=== PATIENT | male | born 1985 | race Caucasian/White ===

== ENCOUNTER 2017-08-12 10:38 | Emergency (ER) | payer MEDICAID, SELFPAY ==
[2017-08-12 11:47] VITALS: BP 111/72; PULSE 84; RESP 20; TEMP 37.2; O2SAT 99; BMI 25.5
--- NOTE | 2017-08-12 11:52 | HMH.EDUTC ---
[facility] – [place] Disposition Clinical Impression: Influenza A Disposition: Home, Self-Care Condition on Discharge: Good Instructions: DI for Influenza -- Adult Additional Instructions: * Start Tamiflu today if you are going to take it. Discussed risks, side effects, risk of allergic reaction, and possible benefits. We even discussed hallucinations and uncontrollable fevers. Mom still wants tamiflu for child. Encouraged to monitor closely.. * Lots of rest * Increase fluids, water, gatorade, powerade, pedialyte if infant/toddler/child * Monitor Temp. Tylenol every 4 hours as needed no more then 5 times a day or 4000mg in 24 hours and/or ibuprofen every 6 hours as needed no more then 3200mg in 24 hours (as long as your primary care doctor has told you that it is ok to take both) for fever/aches/pain. ER if fever no less than 101 despite tylenol and Ibuprofen * OTC cold/flu/sinus medication is ok but pick one. Do not take multiple different ones as they have similar ingredients and you can overdose on cold medication. * You (or your child) are contagious until no fever, aches, chills x 24 hours without medication for symptoms. Prescriptions: Oseltamivir Phosphate [Tamiflu 75mg Capsule] 75 mg PO BID #10 cap Referrals: Rae Crenshaw APRN [Primary Care Provider] - (Follow up IMMEDIATELY for new or worsening symptoms, improvement followed by suddenly feeling worse OR no noticeable improvement over the next 72 hours. 911 for difficulty breathing ) Time of Disposition: 12:02 Medical Decision Making - Nabor Inquiry Pt receiving controlled substance: No Vital Signs: 08/12/17 11:47 Temperature 98.9 F Temperature Source Temporal Artery Scan Pulse Rate [Brachial] 84 Respiratory Rate 20 Blood Pressure [Right Arm] 111/72 Blood Pressure Mean [Right Arm] 85 Blood Pressure Source [Right Arm] Automatic Cuff Blood Pressure Position [Right Arm] Sitting 02 Sat by Pulse Oximetry 99 Oxygen Delivery Method Room Air - Lab Data Influenza A positive, influenza B negative [facility] [place] HPI - General Stated complaint: fever vomiting headache Time Seen by Provider: 08/12/17 11:52 Mode of Arrival: Ambulatory Source of Information: Patient Limitations: No Limitations Description of Symptoms (Recalled from Triage Doc. by RN): TP COMPLAINS OF FEVER, CHILLS, BODY ACHES, COUGH, SINCE YESTERDAY HEENT Symptoms (Recalled from RN notes): Yes Resp Symptoms (Recalled from RN notes): Yes Skin Symptoms (Recalled from RN notes): No MS Symptoms (Recalled from RN notes): No Functional Status (Recalled from RN notes): NA - History of Present Illness Provider Complaint: c/o not feeling well since Saturday night. Worse yesterday. Fever, headache, chills. No known sick contacts. Hasn't taken or tried anything besides tylenol last night which helped them. Fever 101 at home. - Related Data Home Medications Medication Instructions Recorded Confirmed Escitalopram Oxalate [Lexapro] 10 mg PO DAILY 08/12/17 08/12/17 Omeprazole Magnesium [Prilosec Otc 20 mg PO DAILY 08/12/17 08/12/17 20mg Tab] Previous Rx's Medication Instructions Recorded Oseltamivir Phosphate [Tamiflu 75 mg PO BID #10 cap 08/12/17 75mg Capsule] Allergies Allergy/AdvReac Type Severity Reaction Status Date / Time No Known Allergies Allergy Unverified 08/05/17 09:49 - Worker's Comp Is this a Worker's Comp case?: No [facility] History I have reviewed the patient's past medical history: Yes Medical History: Reports:: Anxiety, Gastroesophageal Reflux Disease(GERD) Denies:: Diabetes Mellitus Type 1, Diabetes Mellitus Type 2, Hypertension Laterality Cases: Bilateral: Tonsillectomy Other Surgeries: Yes: Appendectomy, Other (left knee surgery, L BKA) - Social History Alcohol Intake: never - Psychiatric History Expresses thoughts of harming self/others: None Suicide Plan Description: No Plan ROS Obtained: Yes Systems reviewed as appropriate & no additional complaints - [employer]
--- NOTE | 2017-08-12 11:59 | ED_ITS ---
[facility] [place] Impression: Influenza A Disposition: Home, Self-Care Condition on Discharge: Good Instructions: DI for Influenza -- Adult Additional Instructions: * Start Tamiflu today if you are going to take it. Discussed risks, side effects , risk of allergic reaction, and possible benefits. We even discussed hallucinations and uncontrollable fevers. Mom still wants tamiflu for child. Encouraged to monitor closely.. * Lots of rest * Increase fluids, water, gatorade, powerade, pedialyte if /toddler/child * Monitor Temp. Tylenol every 4 hours as needed no more then 5 times a day or 4000mg in 24 hours and/or ibuprofen every 6 hours as needed no more then 3200mg in 24 hours (as long as your primary care doctor has told you that it is ok to take both) for fever/aches/pain. ER if fever no less than 101 despite tylenol and Ibuprofen * OTC cold/flu/sinus medication is ok but pick one. Do not take multiple different ones as they have similar ingredients and you can overdose on cold medication. * You (or your child) are contagious until no fever, aches, chills x 24 hours without medication for symptoms. Prescriptions: Oseltamivir Phosphate [Tamiflu 75mg Capsule] 75 mg PO BID #10 cap Referrals: Rae Crenshaw APRN [Primary Care Provider] - (Follow up IMMEDIATELY for new or worsening symptoms, improvement followed by suddenly feeling worse OR no noticeable improvement over the next 72 hours. 911 for difficulty breathing ) Time of Disposition: 12:02 Medical Decision Making - Nabor Inquiry Pt receiving controlled substance: No Vital Signs: 08/12/17 11:47 Temperature 98.9 F Temperature Source Temporal Artery Scan Pulse Rate [Brachial] 84 Respiratory Rate 20 Blood Pressure [Right Arm] 111/72 Blood Pressure Mean [Right Arm] 85 Blood Pressure Source [Right Arm] Automatic Cuff Blood Pressure Position [Right Arm] Sitting 02 Sat by Pulse Oximetry 99 Oxygen Delivery Method Room Air - Lab Data Influenza A positive, influenza B negative [facility] [place] - General Stated complaint: fever vomiting headache Time Seen by Provider: 08/12/17 11:52 Mode of Arrival: Ambulatory Source of Information: Patient Limitations: No Limitations Description of Symptoms (Recalled from Triage Doc. by RN): TP COMPLAINS OF FEVER , CHILLS, BODY ACHES, COUGH, SINCE YESTERDAY HEENT Symptoms (Recalled from RN notes): Yes Resp Symptoms (Recalled from RN notes): Yes Skin Symptoms (Recalled from RN notes): No MS Symptoms (Recalled from RN notes): No Functional Status (Recalled from RN notes): NA - History of Present Illness Provider Complaint: c/o not feeling well since Saturday night. Worse yesterday. Fever, headache, chills. No known sick contacts. Hasn't taken or tried anything besides tylenol last night which helped them. Fever 101 at home. - Related Data Home Medications Medication Instructions Recorded Confirmed Escitalopram Oxalate [Lexapro] 10 mg PO DAILY 08/12/17 08/12/17 Omeprazole Magnesium [Prilosec Otc 20 mg PO DAILY 08/12/17 08/12/17 20mg Tab] Previous Rx's Medication Instructions Recorded Oseltamivir Phosphate [Tamiflu 75 mg PO BID #10 cap 08/12/17 75mg Capsule] Allergies Allergy/AdvReac Type Severity Reaction Status Date / Time No Known Allergies Allergy Unverified 08/05/17 09:49 - Worker's Comp Is this a Worker's C
[2017-08-12 12:04] LABS: UTC Influenza A Antigen Positive (Negative); UTC Influenza B Antigen Negative (Negative)
[2017-08-12 12:06] VITALS: BP 111/72; PULSE 94; RESP 20; TEMP 37.2; O2SAT 99
== END 2017-08-12 12:07 | disposition home or self-care (01) ==
PROVIDERS: Emergency Provider Nurse Practitioner Family; Family Provider Emergency Medicine; PCP Nurse Practitioner Family
DX: J10.1 Influenza due to other identified influenza virus with other respiratory manifestations (principal); K21.9 Gastro-esophageal reflux disease without esophagitis
CPT/HCPCS: 87804; 99201

== ENCOUNTER 2020-06-09 19:23 | Emergency (ER) | payer OTHER, SELFPAY ==
[2020-06-09 19:24] VITALS: BP 135/78; PULSE 87; RESP 16; TEMP 36.9; O2SAT 96; BMI 24.1
--- NOTE | 2020-06-09 20:21 | HMH.EDEYEP ---
ED Disposition Clinical Impression: Irritation of left eye Disposition: Home, Self-Care Condition on Discharge: Good Instructions: DI for Eye Pain Additional Instructions: use meds as directed and see dr lópez in am if needed Referrals: Rae Crenshaw APRN [Primary Care Provider] - - Critical Care Critical Care Time: No Attestation: On 06/09/20, the high probability of a clinically significant, sudden or life threatening deterioration of the following system(s) required my full and direct attention, intervention and personal management. The time I documented below is in addition to time spent performing reported procedures but includes the following listed in this critical care notation. Medical Decision Making - Medical Records Medical records reviewed: Yes: I reviewed the patient's medical records. - Nabor Inquiry Pt receiving controlled substance: No Vital Signs: 06/09/20 19:24 Temperature 98.4 F Temperature Source Oral Pulse Rate [Left Radial] 87 Respiratory Rate 16 Blood Pressure [Right Arm] 135/78 Blood Pressure Mean [Right Arm] 97 Blood Pressure Source [Right Arm] Automatic Cuff Blood Pressure Position [Right Arm] Sitting 02 Sat by Pulse Oximetry 96 Oxygen Delivery Method Room Air Orders (Tests/Meds): ED MEDICATIONS Discontinued Medications Generic Name Dose Route Start Last Admin Trade Name Freq PRN Reason Stop Dose Admin Gentamicin Sulfate 1 gm 06/09/20 20:26 Gentamicin Opth Ointment 3.5gm OP 06/09/20 20:27 ONCE ONE Tetanus/Diphtheria Toxoids 0.5 ml 06/09/20 20:30 Tetanus-Diphth Toxoid, Adult 0.5ml Syr IM 06/09/20 20:31 .ONCE ONE Tetracaine HCl 20 mg 06/09/20 20:26 Tetracaine 1% (10mg/Ml) 2ml Ampul IJ 06/09/20 20:27 ONCE ONE Eye Problem HPI - General Chief complaint: Eye Problems Stated complaint: FB in eye Time Seen by Provider: 06/09/20 20:00 Mode of Arrival: Ambulatory Source of Information: Patient, Medical Record Limitations: No Limitations Description of Symptoms (Recalled from ER Triage Doc. by RN): pt stated he was cutting wood when he felt something fly up in his left eye. pt stated he bought on OTGingr eye flushing kit but didnt get any relief. pt denies any visual deficits and just complains of irritation at this time. - History of Present Illness HPI Narrative: fb sensation lt eye this pm - not removed with otc meds chief complaint: foreign body Onset (ago): hour(s) Onset description: sudden Duration: intermittent Location: left eye Eye Symptoms: foreign body sensation Place: home Mechanism: other (dust shavings ) Associated symptoms: none Treatments Prior to Arrival: irrigated eye - Related Data Patient tetanus UTD: No Previous Rx's Medication Instructions Recorded duloxetine 60 mg capsule,delayed 60 mg PO DAILY #90 cap 08/17/19 release omeprazole 40 mg capsule,delayed 40 mg PO DAILY #30 cap 06/01/20 release Allergies Allergy/AdvReac Type Severity Reaction Status Date / Time No Known Allergies Allergy Verified 06/01/20 13:25 [facility] History - Hepatitis A Screen Drug use history?: No High risk sexual behaviors?: No History of sexually transmitted infection?: No Currently employed?: No Childcare worker?: No Do you have indoor plumbing?: Yes Do you have electricity?: Yes Attestation statement:: This patient has been screened for Hepatitis A risk factors. I have reviewed the patient's past medical history: Yes Medical History: Reports:: Anxiety, Gastroesophageal Reflux Disease(GERD) Denies:: Diabetes Mellitus Type 1, Diabetes Mellitus Type 2, Hypertension Laterality Cases: Bilateral: Tonsillectomy Other Surgeries: Yes: Appendectomy, Other Amputation: Yes (Left BKA) Fractures: No - Social History Smoking Status: Former smoker Alcohol Intake: current Alcohol Intake Frequency:: holidays/special occasions only Substance Use Type: denies use Occupational Status: employed Housing:
--- NOTE | 2020-06-09 20:28 | PC.NURSE ---
iveth lens applied to pt left eye
[2020-06-09 20:50] VITALS: BP 131/72; PULSE 81; RESP 16; TEMP 36.9; O2SAT 97
== END 2020-06-09 21:04 | disposition home or self-care (01) ==
PROVIDERS: Emergency Provider Emergency Medicine; PCP Nurse Practitioner Family
DX: S00.252A Superficial foreign body of left eyelid and periocular area, initial encounter (principal); W45.8XXA Other foreign body or object entering through skin, initial encounter; Y92.89 Other specified places as the place of occurrence of the external cause; K21.9 Gastro-esophageal reflux disease without esophagitis; F41.9 Anxiety disorder, unspecified; Z23 Encounter for immunization; Z87.891 Personal history of nicotine dependence
CPT/HCPCS: 65205; 90471; 90714; 96365; 99281

== ENCOUNTER 2020-10-06 09:23 | Emergency (ER) | payer OTHER, SELFPAY ==
[2020-10-06 09:25] VITALS: BP 92/62; PULSE 68; RESP 19; TEMP 37; O2SAT 98; BMI 22.5
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
[2020-10-06 10:05] VITALS: BP 92/62; PULSE 68; RESP 19; TEMP 37; O2SAT 98
[2020-10-06 10:59] LABS: Apearance,Urine Clear (Clear); Color,Urine Yellow (Yellow)
[2020-10-06 11:00] LABS: Glucose,Urine (UA) Negative (Negative); Ketones,Urine Negative (Negative); Protein,Urine Negative (Negative)
[2020-10-06 11:01] LABS: Bilirubin,Urine Negative (Negative); Blood, Urine Trace (Negative); UTC Leukocyte Esterase,Urine Negative (Negative); UTC Nitrate,Urine Negative (Negative); Urobilinogen,Urine 0.2 EU/dl (0.2)
[2020-10-08 07:27] LABS: Neisseria gonorrhoeae, NAA Negative (Negative)
== END 2020-10-06 10:08 | disposition home or self-care (01) ==
PROVIDERS: Emergency Provider Nurse Practitioner; PCP Nurse Practitioner Family
DX: Z11.3 Encounter for screening for infections with a predominantly sexual mode of transmission (principal); R30.0 Dysuria; K21.9 Gastro-esophageal reflux disease without esophagitis; F41.9 Anxiety disorder, unspecified
CPT/HCPCS: 81003; 87491; 87591; 99202; G0463

== ENCOUNTER 2021-01-07 19:09 | Emergency (ER) | payer OTHER, SELFPAY ==
[2021-01-07 19:31] VITALS: BP 122/74; PULSE 84; RESP 18; TEMP 37; O2SAT 98; BMI 32.5
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
--- NOTE | 2021-01-07 21:29 | PC.NURSE ---
Pt refused CT Angio neck
[2021-01-07 22:43] VITALS: BP 126/72; PULSE 76; RESP 16; TEMP 37; O2SAT 99
== END 2021-01-07 22:45 | disposition home or self-care (01) ==
PROVIDERS: Emergency Provider Internal Medicine; PCP Nurse Practitioner Family
DX: S00.93XA Contusion of unspecified part of head, initial encounter (principal); S10.93XA Contusion of unspecified part of neck, initial encounter; W22.8XXA Striking against or struck by other objects, initial encounter; Y92.89 Other specified places as the place of occurrence of the external cause; F41.9 Anxiety disorder, unspecified; K21.9 Gastro-esophageal reflux disease without esophagitis; Z87.891 Personal history of nicotine dependence
CPT/HCPCS: 70450; 99282

== ENCOUNTER 2021-09-27 10:13 | Emergency (ER) | payer OTHER, SELFPAY ==
[2021-09-27 10:27] VITALS: BP 113/70; PULSE 79; RESP 17; O2SAT 98; BMI 24.9
[2021-09-27 11:16] VITALS: BP 113/70; PULSE 79; RESP 18; TEMP 36.6; O2SAT 99; BMI 25.0
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
[2021-09-27 12:30] VITALS: BP 113/70; PULSE 79; RESP 18; TEMP 36.6
== END 2021-09-27 12:33 | disposition home or self-care (01) ==
PROVIDERS: Emergency Provider Nurse Practitioner Family; PCP Nurse Practitioner Family
DX: M62.838 Other muscle spasm (principal); M79.605 Pain in left leg; Z89.512 Acquired absence of left leg below knee; T87.89 Other complications of amputation stump; K21.9 Gastro-esophageal reflux disease without esophagitis; F41.9 Anxiety disorder, unspecified; Z87.891 Personal history of nicotine dependence; Z79.899 Other long term (current) drug therapy
CPT/HCPCS: 96372; 99212; G0463

== ENCOUNTER 2022-06-13 09:38 | Emergency (ER) | payer OTHER, SELFPAY ==
[2022-06-13 09:38] VITALS: BP 114/70; PULSE 70; RESP 18; TEMP 36.3; O2SAT 100; BMI 24.3
--- NOTE | 2022-06-13 09:42 | PC.NURSE ---
pt to restroom via wc to provide urine sample
--- NOTE | 2022-06-13 09:46 | PC.NURSE ---
pt to ed room 11 via wc from restroom
--- NOTE | 2022-06-13 09:51 | PC.NURSE ---
0920 DR BARTON AT BEDSIDE
--- NOTE | 2022-06-13 09:52 | CT_ITS ---
FINAL REPORT TECHNIQUE: Noncontrast CT exam of the abdomen and pelvis. This study was performed with techniques to keep radiation doses as low as reasonably achievable (ALARA). Individualized dose reduction techniques using automated exposure control or adjustment of mA and/or kV according to the patient''s size were employed. CLINICAL HISTORY: Left flank pain radiating to groin COMPARISON: None FINDINGS: Abdomen: Lung bases are clear. Liver, spleen, pancreas and adrenal glands have a normal CT appearance in their limited unenhanced state. There is a 3 mm left proximal ureteral stone with minimal left hydronephrosis. No other urinary tract stones are identified. No obvious renal mass is present. No ureteral stones are present. Bowel is unremarkable. Pelvis: The appendix is not identified; possibly surgically absent. Bladder is unremarkable. No fluid collection or adenopathy is seen. IMPRESSION: Small proximal left ureteral stone with minimal left hydronephrosis. Reviewed, Interpreted and Dictated by Erica Lopez MD Transcribed by Glenna Grey Authenticated and [facility]
[2022-06-13 09:54] LABS: Microscopic, Urine URINE MICROSCOPIC (MICROSCOPIC)
[2022-06-13 09:56] LABS: Appearance,Urine CLOUDY (Clear); Bilirubin,Urine Negative (Negative); Blood, Urine 3+ (Negative); Color,Urine DK YELLOW (Yellow); Glucose,Urine (UA) Negative (Negative); Ketones,Urine Negative (Negative); Leukocyte Esterase,Urine Negative (Negative); Nitrate,Urine Negative (Negative); PH,Urine 5.5 (5.0-8.5); Protein,Urine 1+ (Negative); Specific Gravity, Urine >= 1.030 (1.005-1.030); Urobilinogen,Urine 0.2 EU/dl (0.2)
--- NOTE | 2022-06-13 09:59 | US_ITS ---
FINAL REPORT TECHNIQUE: Ultrasound images of the testicles were obtained bilaterally. Color Doppler images were obtained. CLINICAL HISTORY: severe L testicular pain FINDINGS: The testicles are normal in size and echotexture bilaterally. Arterial flow is identified bilaterally. No intratesticular masses are identified. There is a small left hydrocele. There is no evidence of torsion. IMPRESSION: Small left hydrocele. No evidence of torsion. Reviewed, Interpreted and Dictated by Erica Lopez MD Transcribed by Yandy Kaiser Authenticated and [facility]
[2022-06-13 10:08] LABS: Bacteria,Urine 1+ /lpf; Hyaline Casts,Urine Occasional #/lpf (0); RBC,Urine TNTC #/hpf (0-3); Squamous Epithelial Cell,Urine Occasional #/hpf (0-5)
[2022-06-13 10:10] LABS: Basophils # 0.1 K/mm3 (0-0.2); Basophils % 0.9 % (0.1-2.0); Eosinophils # 0.2 K/mm3 (0.0-0.4); Eosinophils % 3.9 % (0.1-12.0); Hematocrit 40.1 % (42.0-52.0); Hemoglobin 13.6 g/dL (14.1-18.0); Lymphocytes # 1.8 K/mm3 (0.7-4.5); Mean Corpuscular HGB Conc 33.9 g/dL (31.8-35.4); Mean Corpuscular Hemoglobin 29.6 pg (27.0-31.2); Mean Corpuscular Volume 87.2 fl (80-94); Mean Platelet Volume 7.7 fl (7.4-10.4); Monocytes # 0.4 K/mm3 (0.1-1.0); Monocytes % 6.6 % (1.7-9.3); Neutrophils # 3.7 K/mm3 (1.8-7.8); Neutrophils % 59.5 % (37.0-80.0); Platelet Count 246 K/mm3 (142-424); Red Cell Distribution Width 13.2 % (11.5-17.5); White Blood Count 6.3 K/mm3 (4.8-10.8)
[2022-06-13 10:12] LABS: Chloride 108 mmol/L (98-107)
[2022-06-13 10:13] LABS: Potassium 4.5 mmoL/L (3.5-5.1); Sodium 141 mmol/L (136-145)
[2022-06-13 10:15] LABS: Alanine Aminotransferase 27 U/L (12-78); Alkaline Phosphatase 52 U/L (38-126); Anion Gap 12.5 mEq/L (5-15); Aspartate Amino Transferase 29 U/L (17-59); Bilirubin,Total 0.4 mg/dl (0.2-1.3); Blood Urea Nitrogen 19 mg/dl (9-20); Carbon Dioxide 25 mmol/L (22.0-30.0); Creatinine Clearance Estimated 131 mL/min (50-200); Estimated Glomerular Filt Rate 85 ml/min (>60); GFR (African American) 102 ML/MIN (>60)
[2022-06-13 10:16] LABS: Albumin Level 4.6 g/dl (3.5-5.0); Albumin/Globulin Ratio 1.6 (1.1-1.8); Calcium 9.4 mg/dl (8.4-10.2); Globulin 2.9 g/dL (1.3-3.2); Glucose 106 mg/dl (74-100); Total Protein,Serum 7.5 g/dl (6.3-8.2)
--- NOTE | 2022-06-13 10:27 | HMH.EDGENADL ---
Discharge Plan Disposition Patient Disposition: Home, Self-Care Condition: Good Prescriptions Prescriptions: New ondansetron 4 mg tablet,disintegrating 4 mg PO Q8H PRN (Reason: nausea and vomiting) 4 Days Qty: 12 0RF tamsulosin [Flomax] 0.4 mg capsule 0.4 mg PO DAILY 7 Days Qty: 7 0RF ketorolac 10 mg tablet 10 mg PO Q8H PRN (Reason: pain) Qty: 20 0RF oxycodone 5 mg capsule 5 mg PO Q8H PRN (Reason: pain) Qty: 12 0RF No Action pantoprazole 40 mg tablet,delayed release (DR/EC) 40 mg PO DAILY prednisone 20 mg tablet 20 mg PO BID 5 Days Qty: 10 0RF naproxen 500 mg tablet 500 mg PO BID Qty: 30 0RF bupropion HCl [Wellbutrin XL] 150 mg tablet extended release 24 hr 150 mg PO DAILY Qty: 30 1RF clonazepam [Klonopin] 0.5 mg tablet 0.5 mg PO BID PRN (Reason: anxiety) Qty: 14 0RF Referrals Follow up/Referrals: Haroon Connor APRN [Primary Care Provider] - See instructions Activity Restrictions/Add. Instructions Additional Instructions/Restrictions: You were evaluated in the emergency department today for flank pain. At this time, we feel that your symptoms are due to a kidney stone. Please slate picker your prescriptions at the pharmacy and take them as prescribed. Do not drive or operate heavy machinery while taking narcotic pain medication. Patient is to stay orally hydrated. Follow-up with your primary care provider over the next 48 hours. Return to the emergency department for any new or worsening symptoms, such as fevers, chills, intractable nausea vomiting, or other concerns. Clinical Impressions Clinical Impression: Ureterolithiasis Instructions Patient Instructions: DI for Kidney Stones, DI for Acute Pain -- Adult Discharge ED Provider: Adina Clemons General Adult HPI General Chief complaint: PAIN Stated complaint: severe kidney pain, Lt back pain down to testicles Time Seen by Provider: 06/13/22 09:52 Mode of Arrival: Wheelchair Limitations: No Limitations Description of Symptoms (Recalled from ER Triage Doc. by RN): PT REPORTS WAKING THIS AM WITH SEVERE LEFT FLANK AND TESTICLE PAIN THAT JUST STARTED. DENIES FEVER OF CHILLS. PT REPORTS NAUSEA History of Present Illness HPI narrative: This patient is a 36-year-old male with no significant past medical history presenting to the emergency department for evaluation with concern for severe left flank pain that started just prior to arrival. He states that it radiates to his left groin and left testicle. He denies experiencing anything like this in the past. He states it is severe, sharp, and constant. Nothing seems to make it better or worse. He also experiences nausea as well as chills. No recent trauma, no other concerns. No fevers, chest pain, shortness of breath, changes to bowel movements, rashes, or swelling. Related Data Home Medications Medication Instructions Recorded Confirmed pantoprazole 40 mg tablet,delayed 40 mg PO DAILY 04/05/22 04/05/22 release Previous Rx's Medication Instructions Recorded naproxen 500 mg tablet 500 mg PO BID #30 tabs 04/05/22 prednisone 20 mg tablet 20 mg PO BID 5 days #10 tabs 04/05/22 bupropion HCl 150 mg 24 hr tablet, 150 mg PO DAILY #30 tabs 05/17/22 extended release (Wellbutrin XL) clonazepam 0.5 mg tablet (Klonopin) 0.5 mg PO BID PRN anxiety #14 tabs 05/17/22 ketorolac 10 mg tablet 10 mg PO Q8H PRN pain #20 tabs 06/13/22 ondansetron 4 mg disintegrating 4 mg PO Q8H PRN nausea and 06/13/22 tablet vomiting 4 days #12 tabs oxycodone 5 mg capsule 5 mg PO Q8H PRN pain #12 caps 06/13/22 tamsulosin 0.4 mg capsule (Flomax) 0.4 mg PO DAILY 7 days #7 caps 06/13/22 Allergies Allergy/AdvReac Type Severity Reaction Status Date / Time No Known Allergies Allergy Verified 04/05/22 08:50 [facility] Disclaimer: The information contained in this section may have been updated after the patient was seen, as this information can be updated by other users. Medical H
[2022-06-13 10:30] VITALS: BP 123/60; PULSE 59; O2SAT 99
--- NOTE | 2022-06-13 10:35 | PC.NURSE ---
ROUNDED ON PT, REPORTS FEELING MUCH BETTER. RATES PAIN 3/10. NO FURTHER NEEDS AT THIS TIME
--- NOTE | 2022-06-13 10:43 | PC.NURSE ---
rounded on patient, patient resting on ED stretcher and reports no needs at this time. call light within reach
--- NOTE | 2022-06-13 10:44 | PC.NURSE ---
PT TO CT AT THIS TIME
--- NOTE | 2022-06-13 11:37 | PC.NURSE ---
PT RETURNED FROM CT
--- NOTE | 2022-06-13 11:49 | PC.NURSE ---
PT MEDICATED PER EMAR, NO NEEDS AT THIS TIME
[2022-06-13 13:14] VITALS: BP 123/78; PULSE 79; RESP 18; TEMP 36.6; O2SAT 97
== END 2022-06-13 13:16 | disposition home or self-care (01) ==
PROVIDERS: Emergency Provider Emergency Medicine; PCP Nurse Practitioner Family
DX: N20.0 Calculus of kidney (principal); F41.1 Generalized anxiety disorder; F17.210 Nicotine dependence, cigarettes, uncomplicated; Z89.512 Acquired absence of left leg below knee; F12.90 Cannabis use, unspecified, uncomplicated
CPT/HCPCS: 74176; 76870; 80053; 81001; 85025; 96361; 96374; 96375; 99285; J2405

== ENCOUNTER → 2023-04-18 10:12 | Outpatient (CLI) | payer OTHER, SELFPAY ==
--- NOTE | 2023-04-18 10:12 | CT_ITS ---
FINAL REPORT TECHNIQUE: After the administration of IV contrast, axial images through the cervical spine was performed by computed tomography. Sagittal and coronal reformatted images were obtained and reviewed. This study was performed with techniques to keep radiation doses as low as reasonably achievable (ALARA). Individualized dose reduction techniques using automated exposure control or adjustment of mA and/or kV according to the patient's size were employed. CLINICAL HISTORY: back and neck pain FINDINGS: There is no evidence of fracture or malalignment. There is reversal of the normal cervical lordosis. The facets are properly aligned. There is no significant disc bulge or protrusion. IMPRESSION: No acute process. Reviewed, Interpreted and Dictated by Shawn Mckeon MD Transcribed by Yandy Kaiser Authenticated and . [facility]
--- NOTE | 2023-04-18 10:12 | CT_ITS ---
FINAL REPORT TECHNIQUE: After the administration of IV contrast, axial images through the thoracic spine was performed by computed tomography. Sagittal and coronal reformatted images were obtained and reviewed. This study was performed with techniques to keep radiation doses as low as reasonably achievable (ALARA). Individualized dose reduction techniques using automated exposure control or adjustment of mA and/or kV according to the patient's size were employed. CLINICAL HISTORY: head and neck pain FINDINGS: The vertebrae are normal height. There is no malalignment. There is minimal osteophyte formation in the midthoracic spine. There is no significant disc bulge or protrusion. The lungs are clear. IMPRESSION: Minimal degenerative changes without acute bony abnormality. Reviewed, Interpreted and Dictated by Shawn Mckeon MD Transcribed by Yandy Kaiser Authenticated and [facility][1]
== END ==
PROVIDERS: PCP Nurse Practitioner Family; Visit Provider Emergency Medicine
DX: M54.2 Cervicalgia (principal); M54.9 Dorsalgia, unspecified
CPT/HCPCS: 72126; 72129; Q9967

== ENCOUNTER → 2023-04-24 11:59 | Outpatient (CLI) | payer OTHER, SELFPAY ==
[2023-04-24 12:19] LABS: Barbiturates Screen,Urine Negative ng/ml (<200)
[2023-04-24 12:20] LABS: Amphetamine/Metha Screen,Urine Negative ng/ml (<1000); Benzodiazepines Screen,Urine Negative ng/ml (<200)
[2023-04-24 12:21] LABS: Cocaine Screen,Urine Negative ng/ml (<300); Methadone Screen,Urine Negative ng/ml (<300)
[2023-04-24 12:22] LABS: Cannabinoid Screen,Urine Positive ng/ml (<50)
[2023-04-24 12:23] LABS: Phencyclidine Screen,Urine Negative ng/ml (<25)
[2023-04-24 12:44] LABS: Opiate Screen,Urine Negative ng/ml (<300)
== END ==
PROVIDERS: PCP Nurse Practitioner Family; Visit Provider Nurse Practitioner Psychiatric/Mental Health
DX: Z91.89 Other specified personal risk factors, not elsewhere classified (principal); Z79.899 Other long term (current) drug therapy
CPT/HCPCS: 80305

== ENCOUNTER 2024-06-15 15:40 | Outpatient (CLI) | payer OTHER, SELFPAY ==
[2024-06-15 18:16] LABS: Basophils % 0.5 % (0.1-2.0); Eosinophils # 0.1 K/mm3 (0.0-0.4); Eosinophils % 1.7 % (0.1-12.0); Hematocrit 42.3 % (42.0-52.0); Hemoglobin 14.4 g/dL (14.1-18.0); Lymphocytes # 1.6 K/mm3 (0.7-4.5); Lymphocytes % 27.1 % (10-50); Mean Corpuscular Hemoglobin 29.3 pg (27.0-31.2); Mean Corpuscular Volume 86.2 fl (80-94); Mean Platelet Volume 10.1 fl (7.4-10.4); Monocytes # 0.5 K/mm3 (0.1-1.0); Monocytes % 8.8 % (1.7-9.3); Neutrophils # 3.6 K/mm3 (1.8-7.8); Neutrophils % 61.7 % (37.0-80.0); Platelet Count 226 K/mm3 (142-424); Red Blood Count 4.91 M/mm3 (4.60-6.20); Red Cell Distribution Width 12.5 % (11.5-17.5); White Blood Count 5.8 K/mm3 (4.8-10.8)
[2024-06-15 19:25] LABS: Albumin Level 5.2 g/dl (3.5-5.0); Chloride 104 mmol/L (98-107); Sodium 140 mmol/L (136-145)
[2024-06-15 19:26] LABS: Potassium 4.2 mmoL/L (3.5-5.1)
[2024-06-15 19:28] LABS: Alanine Aminotransferase 105 U/L (12-78); Albumin/Globulin Ratio 2.1 (1.1-1.8); Alkaline Phosphatase 70 U/L (38-126); Anion Gap 16.2 mEq/L (5-15); Aspartate Amino Transferase 48 U/L (17-59); Bilirubin,Total 0.8 mg/dl (0.2-1.3); Blood Urea Nitrogen 17 mg/dl (9-20); Carbon Dioxide 24 mmol/L (22.0-30.0); Cholesterol 204 mg/dl (140-200); Estimated Glomerular Filt Rate 108 ml/min (>60); GFR (African American) 131 ML/MIN (>60); Globulin 2.5 g/dL (1.3-3.2); Total Protein,Serum 7.7 g/dl (6.3-8.2); Triglycerides 90 mg/dl (30-150); VLDL Cholesterol 18 mg/dL (0-40)
[2024-06-15 19:29] LABS: Calcium 9.8 mg/dl (8.4-10.2); Chol/HDL Ratio 3.4 (1-3.5); Glucose 94 mg/dl (74-100); HDL Cholesterol 60 mg/dl (40-60)
[2024-06-15 19:43] LABS: Direct LDL Cholesterol 117.04 mg/dL (100-129)
[2024-06-15 19:56] LABS: 25-OH Vitamin D, Total 36.2 ng/mL (30-100)
[2024-06-15 20:07] LABS: Thyroid Stimulating Hormone 1.61 uIU/mL (0.465-4.68)
== END 2024-06-15 23:59 | disposition home or self-care (01) ==
LOC: LAB.DROPOF 06-16 11:05
PROVIDERS: PCP Family Medicine; Visit Provider Family Medicine
DX: M54.2 Cervicalgia (principal); E55.9 Vitamin D deficiency, unspecified
CPT/HCPCS: 80053; 80061; 82306; 84443; 85025

== ENCOUNTER 2024-06-25 08:00 | Outpatient (RCR) | payer OTHER, SELFPAY ==
--- NOTE | 2024-06-23 15:14 | HMH.PTOPEV ---
PT Outpatient Evaluation Rehab PT Outpatient Evaluation Start: 06/23/24 14:44 Freq: Status: Active Protocol: Document 06/23/24 14:45 LORY (Rec: 06/23/24 15:12 LORY [id number]) E-signed By Sandip Morrell, PT Outpatient Therapy Subjective History Subjective History The pt is a 38 yom who presents to [facility] outpatient Physical Therapy with complaints of neck pain that refers into his R shoulder blade and up into his R restoration that began approximately 2 years ago. The patient is also a L BKA from 1989. He reports that his previous prosthetic was about 2 inches too long, and he believes that it is the reason that he is having so much trouble. He reports that he has been seeing a chiropractor bi-weekly for 2 years for his hips and neck, which have not helped. He works as an [employer]. New diagnosis of cancer in past 12 No months? Chief Complaint Pain,Stiff Symptom Type Ache Symptoms Relieved By Heat,Ice,OTC Meds Symptoms Aggravated By Twisting,Lifting Prior Functional Limitations None Current Functional Limitations Reaching,Lifting,Housework Symptom Description Intermittent,Activity Dependent Level of pain today (0-10) 0 Pain scale - at its best (0-10) 0 Pain scale - at its worst (0-10) 6 Cervical Eval Palpation Cervical Muscles R Cervical Paraspinal,R Suboccipital,R CT Junction,R Upper Trapezius,R Thoracic Paraspinals Cervical/Thoracic Palpation Findings Tenderness,Trigger Point Posture Head/C-Spine Posture Sitting Position Neutral Position Head/C-Spine Posture Standing Position Neutral Position Flexibility Deficits Upper Trapezius Muscle Length (R) Moderate Tightness,(L) Moderate Tightness Levaetor Scapulae Muscle Length (R) WFL,(L) WFL Scalene Group Muscle Length (R) Mild Tightness,(L) Mild Tightness Pectoralis Major Muscle Length (R) Moderate Tightness,(L) Moderate Tightness Pectoralis Minor Muscle Length (R) Moderate Tightness,(L) Moderate Tightness Passive Joint Mobility Cervical PIVM Dec: R C3/4 R C4/5 R C5/6 R C6/7 R C7/T1 WNL: R OA L OA R AA L AA R C2/3 L C2/3 L C3/4 L C4/5 L C5/6 L C6/7 L C7/T1 AROM Cervical Spine Extension Active Range of 20 Motion (degrees) Cervical Spine Flexion Active Range of 35 Motion (degrees) Cervical Spine Right Lateral Flexion 25 Active Range of Motion (degrees) Cervical Spine Left Lateral Flexion 15 Active Range of Motion (degrees) MMT Bilateral Deltoid (C5) 5 Normal Biceps Brachii Strength Grade 5 Normal Wrist Extension Strength Grade 5 Normal Triceps Brachii Strength Grade 5 Normal Wrist Flexion Strength Grade 5 Normal Extensor Pollicis Longus Strength Grade 5 Normal Finger Abduction Strength Grade 5 Normal DTR Rt Biceps 2+ Lt Biceps 2+ Rt Brachioradialis 2+ Lt Brachioradialis 2+ Rt Triceps 2+ Lt Triceps 2+ Special Test C-Spine Foraminal Compression (Spurling) Negative Left,Negative Right Test C-spine Verterbral Accessory Movements Central P/A [place],Right P/A that Elicit Symptoms [place] C-Spine Foraminal Distraction Test Negative C-Spine Compression Test Negative Left,Negative Right C-Spine Swallowing Test Negative Left Shoulder Abduction Relief Test Negative Left,Negative Right Shoulder Brachial Plexus Stretch Test Negative Left,Negative Right Neck Disability Index Neck Disability Index Section 1: Pain Intensity The pain is moderate at the moment Section 2: Personal Care (washing, I can look after myself dressing, etc.) normally without causing extra pain Section 3: Lifting I can lift heavy weights without extra pain Section 4: Reading I can read as much as I want to with no pain in my neck Section 5: Headaches I have slight headaches, which come infrequently Section 6: Concentration I can concentrate fully when I want to with no difficulty Section 7: Work I can do as much work as I want to Section 8: Driving I can drive my car without any neck pain Section 9: Sleeping I have no trouble sleeping Section 10: Recreation I am able to engage in all my recreation activities with no neck pain NDI Score 3 Miscellaneous Dx PT Eval Objective Objective R Rhomboids: 4/5 Outpatient Therapy Assessment Impairments Problems/Impairmments Palpation Tenderness,Impaired Range of Motion,Impaired Strength,Impaired Lifting, Impaired Household Care, Subjective C/O Pain Prognosis Rehab Potential Good Comment w HEP Compliance Clinical Impression Consistent with Diagnosis Yes Consistent with Neck pain with mobility deficits Additional details: Pt presents with signs and symptoms consistent with neck pain with mobility deficits. Pt would benefit from skilled PT to address his current impairments, improve quality of life and to return to his prior level of function. Short Term Goals Number of Weeks 3 Decreased Palpation Tenderness Yes: 1-2/4 to Cervical Spine TTP Assessment Increase Range of Motion Yes: Cervical Flexion AROM to 50 LF to 30 B Increase Strength Yes: Rhomboids to 4+/5 Restore Ability to Lift Objects to Yes: 5# without pain Shoulder Level Improve Neck Disability Index Score Yes Decrease Subjective C/O Pain Yes: 5/10 with above activities Patient to be Ind w/ HEP Yes Cyberathlete Goals Number of Weeks 6 Decreased Palpation Tenderness Yes: 0-1/4 to TTP Assessment Above Increase Range of Motion Yes: Cervical Flexion to 60 and LF to 45 B Increase Strength Yes: 5/5 to Rhomboids Restore Ability to Lift Objects Overhead Yes: 5# without pain Decrease Subjective C/O Pain Yes: 210 without pain Patient to be Ind w/ Advanced HEP Yes Outpatient Therapy Plan of Care Treatment Plan May Include Therapeutic Exercise Including Home Yes Exercise Program Manual Therapy Techniques Yes Neuromuscular Re-education Yes Therapeutic Activities to Return to Yes Previous Functional/Work Level Gait Training Yes ADL/Self Care Education Yes Mechanical Traction Yes Dry Needling Yes Thermal Modalities Yes Electrical Stimulation Yes Ultrasound/Phonophoresis Yes Iontophoresis Yes Manual Lymphatic Drainage Yes Eval/Re-Eval Yes Frequency Times per week 2 Duration Number of Weeks 6 Addendums This patient is a candidate for social No or vocational rehab? Patient/Guardian verbally acknowledges Yes understanding of treatment program and consents to further treatment? Patient/Guardian verbally acknowledges Yes understanding of diagnosis, prognosis and goals for treatment? Eval Complexity PT Charges 04392 - High Complexity Shoulder/Elbow Eval Shoulder Objective Measurements Elbow Objective Measurements PHYSICIAN CERTIFICATION: I certify the specified therapy services for Travis Reagan are required, authorized, and reviewed every 30 days.
== END 2024-06-30 23:59 | disposition home or self-care (01) ==
LOC: PT 08:00
PROVIDERS: PCP Family Medicine; Visit Provider Family Medicine
DX: M54.2 Cervicalgia (principal)
CPT/HCPCS: 97140; 97163; 97530

== ENCOUNTER 2024-07-02 13:58 | Outpatient (CLI) | payer OTHER, SELFPAY ==
--- NOTE | 2024-07-02 14:02 | XR_ITS ---
FINAL REPORT CLINICAL HISTORY: neck pain, PATIENT STATES THERE IS A CLICKING IN HIS NECK FINDINGS: No fracture is present. Alignment is normal. No prevertebral soft tissue swelling is seen. Disc heights are well maintained. IMPRESSION: Unremarkable cervical spine series. Reviewed, Interpreted and Dictated by Erica Lopez MD Transcribed by Yandy Kaiser Authenticated and [facility]
== END 2024-07-02 23:59 | disposition home or self-care (01) ==
LOC: RAD 13:59
PROVIDERS: PCP Family Medicine; Visit Provider Family Medicine
DX: M54.2 Cervicalgia (principal)
CPT/HCPCS: 72040

== ENCOUNTER 2024-07-10 07:43 | Outpatient (CLI) | payer OTHER, SELFPAY ==
--- NOTE | 2024-07-10 07:43 | FL_ITS ---
FINAL REPORT CLINICAL HISTORY: issues swallowing, clicking when swallowing FINDINGS: ESOPHAGRAM HISTORY: Issues with swallowing. Clicking when swallowing. PROCEDURE: The patient ingested barium. Effervescent crystals were also administered. Spot and overhead films were obtained. FINDINGS: The esophagus is normal. There is a small sliding-type hiatal hernia. There was mild gastroesophageal reflux. Peristalsis is normal. A 13 mm barium tablet passes through the esophagus and into the stomach without delay. IMPRESSION: Small sliding-type hiatal hernia with gastroesophageal reflux. Films reviewed , interpreted and dictated by Dr. Shobha Rollins. Transcribed by Uvaldo Lo PA-C. Reviewed, Interpreted and Dictated by Shobha Rollins MD Transcribed by JAY Moreno Authenticated and [facility]
[2024-07-10] MEDS: BARIUM SULFATE (E-Z-HD 340GM);135ML BOTTLE 135 ML PO (08:27)
[2024-07-10] MEDS: E-Z-GASII EFFERVESCENT GRANULES;1PK 1 EACH PO (08:27)
[2024-07-10] MEDS: BARIUM SULFATE(LIQUID E-Z-PAQUE);355ML BOTTLE 355 ML PO (08:27)
== END 2024-07-10 23:59 | disposition home or self-care (01) ==
LOC: RAD 07:43
PROVIDERS: PCP Family Medicine; Visit Provider Family Medicine
DX: K22.4 Dyskinesia of esophagus (principal); K21.9 Gastro-esophageal reflux disease without esophagitis; M54.2 Cervicalgia
CPT/HCPCS: 74220

== ENCOUNTER 2024-08-06 08:53 | Outpatient (CLI) | payer OTHER, SELFPAY ==
[2024-08-06 19:08] LABS: Coronavirus 19, PCR Not Detected (NotDetected); Influenza A, PCR Not Detected (NotDetected); Influenza B, PCR Not Detected (NotDetected)
== END 2024-08-06 23:59 | disposition home or self-care (01) ==
LOC: LAB.DROPOF 08-07 12:10
PROVIDERS: PCP Family Medicine; Visit Provider Family Medicine
DX: J02.9 Acute pharyngitis, unspecified (principal)
CPT/HCPCS: 87070; 87636

== ENCOUNTER 2024-09-01 12:40 | Outpatient (CLI) | payer OTHER, SELFPAY ==
--- OUTSIDE RECORDS SUMMARY | 2024-09-01 12:42 | XMS_ITS | Data Portability ---
Author Organization [facility]DIE TIFFANY [facility] & TIFFANY Rodriguez ADMIN Address [address] [place] [address] Assessment Encounter Date Assessment Date Assessment LastModified by Organization Details LastModified Time 08/06/2022 08/06/2022 36-year-old male with history of GERD and nausea/vomiting . His symptoms are well controlled on twice daily Pantoprazole and Buspar. Previously recommended that he stop THC use. He did not proceed with EGD due to improvement in symptoms with medication change. -Contine Pantoprazole. Refills sent to his pharmacy. -Consider EGD in the future with worsening symptoms. [email or web address] Not available 08/06/2022 09:39:22 Plan of Treatment Reminders Order Date Submit Date Provider Last Modified By Organization Details Last Modified Time Details Appointments None recorded. Lab None recorded. Referral None recorded. Procedures None recorded. Surgeries None recorded. Imaging None recorded. Medication Orders pantoprazol e 40 mg tablet,glendy yed release 2022 [id number], [address] [place], [address], 3 09:38:01 Patient TargetsNo targets recorded. Patient InstructionsNo instructions recorded. Reason for Referral None Reported. Problems Name Problem SNOMED Code Status Onset Date Resolution Date Notes Provider Name and Address Organization Details Recorded Time Gastroesophag eal reflux disease 365912925 Active 2022 FREDDIE Sandoval [facility] & [place] 3 10:38:35 Nausea and vomiting 04207124 Active 2022 FREDDIE Sandoval [facility] & [place] 3 10:38:45 Anxiety 48645959 Active 2022 Cherise Ospina null, [place] - [facility] & [place] 3 10:38:50 Amputated left lower limb below knee 421701842 Active 2022 Cherise Ospina null, [place] - [facility] & [place] 3 10:39:50 Gastroesophag eal reflux disease without esophagitis 544290844 Active 2022 Oleksandr Gleason PA-C [address] [facility], [place], [address] , [facility] - [facility] & [place] 3 09:36:56 Problem Notes None recorded. Medical Equipment None Reported. Allergies No known drug allergies Medications Name Sig Start Date Stop Date Status Note LastModified by Organization Details LastModified Time clindamycin HCl 300 mg capsule TAKE 1 CAPSULE BY MOUTH THREE TIMES DAILY active Not Available Not Available No t Available azithromycin 250 mg tablet active Not Available Not Availabl e Not Available valacyclovir 1 gram tablet TAKE 1 TABLET BY MOUTH TWICE DAILY active Not Available Not Available No t Available hydrocodone 5 mg-acetaminoph en 325 mg tablet active Not Available Not Available Not Available prednisone 20 mg tablet TAKE 1 TABLET BY MOUTH TWICE DAILY FOR 5 DAYS active Not Available Not Available No t Available clonazepam 0.5 mg tablet TAKE 1 TABLET BY MOUTH EVERY NIGHT AT BEDTIME NEEDED FOR ANXIETY active Not Available Not Available No t Available ketorolac 10 mg tablet TAKE 1 TABLET BY MOUTH EVERY 8 HOURS NEEDED FOR PAIN active Not Available Not Available No t Available methocarbamol 750 mg tablet TAKE 1 TABLET BY MOUTH TWICE DAILY NEEDED FOR MUSCLE SPASM active Not Available Not Available No t Available tamsulosin 0.4 mg capsule TAKE 1 CAPSULE BY MOUTH ONCE DAILY FOR 7 DAYS active Not Available Not Available No t Available benzonatate 100 mg capsule TAKE 1 CAPSULE BY MOUTH THREE TIMES DAILY NEEDED FOR COUGH active Not Available Not Available No t Available cephalexin 500 mg capsule TAKE 1 CAPSULE BY MOUTH THREE TIMES DAILY active Not Available Not Available No t Available pantoprazole 40 mg tablet,delayed release Take 1 tablet twice a day by oral route before meals for 30 days. 2023 active Not Available Not Available Not Avai lable oxycodone 5 mg capsule TAKE 1 CAPSULE BY MOUTH EVERY 8 HOURS NEEDED FOR PAIN active Not Available Not Available No t Available ondansetron 4 mg disintegrating tablet DISSOLVE 1 TABLET IN MOUTH EVERY 8 HOURS NEEDED FOR NAUSEA AND VOMITING FOR 4 DAYS active Not Available Not Available No t Available cefdinir 300 mg capsule TAKE 1 CAPSULE BY MOUTH TWICE DAILY active Not Available Not Available No t Available fluticasone propionate 50 mcg/actuation nasal spray,suspensi on SHAKE LIQUID AND USE 1 SPRAY IN EACH NOSTRIL DAILY active Not Available Not Available No t Available naproxen 500 mg tablet TAKE 1 TABLET BY MOUTH TWICE DAILY active Not Available Not Available No t Available bupropion HCl XL 150 mg 24 hr tablet, extended release TAKE 1 TABLET BY MOUTH ONCE DAILY active Not Available Not Available No t Available chlorhexidine gluconate 0.12 % mouthwash RINSE WITH 1/2 OUNCE TWICE A DAY FOR 2 MINUTES THEN SPIT active Not Available Not Available No t Available cyclobenzaprin e 7.5 mg tablet TAKE 1 TABLET BY MOUTH AT BEDTIME NIGHTLY NEEDED FOR MUSCLE SPASM active Not Available Not Available No t Available Vitals None Recorded Social History None recorded. Functional Status None recorded. Mental Status None recorded. Family History Nothing Reported. Medical History No medical history recorded. Past Encounters Encounter ID Performer Location Encounter Start Date Encounter Closed Date Diagnosis/Indication Diagnosis SNOMED-CT Code Diagnosis ICD10 Code Diagnosis Note [id number] Oleksandr Gleason PA-C [facility] [address] [address] 08/06/2022 09:02:57 08/06/2022 09:09:28 Nausea and vomiting 99542731 R11.2 Gastroesop hageal reflux disease without esophagitis 363861381 K21.9 Health Concerns Section Related Observation LastModified by Organization Detai ls LastModified Time None Recorded Concern Status LastModified by Organization Details LastModified Time None Recorded Advance Directives Directive None Recorded Payers Encounter Date Sequence Insurance Name Policy Number Policy Munoz Covered Member ID Munoz Member ID Guarantor Name 08/06/2022 2 [employer] Travis Reagan [id number] Travis Reagan 08/06/2022 1 [employer] [facility] (MEDICAID HMO) Travis Reagan [id number] Travis Reagan Notes Date Note Type Note Provider Name and Address Organization Details Recorded Time 08/06/2022 text/html Patient presents to the office today for follow-up regarding GERD, nausea, and vomiting. He is doing very well at this time. He is continue Protonix 40 mg p.o. b.i.d. with good control of his reflux symptoms. He reports that his nausea and vomiting are significantly improved since he started BuSpar last October. He denies any additional complaints at this time. I spent a total of 8 minutes during this real-time clinical encounter that was initiated by the patient which started at 0847 and ended at 0855. Consent was obtained to engage in telephonic service. Greater than 50% of the time spent was devoted to counseling and coordinating care including review of patient record, patient lab data and studies as well as discussing diagnostic evaluation and workup, planned therapeutic intervention and further disposition of care. Oleksandr Gleason PA-C [address], [place], [address], [facility] [place] [facility] [place] & [place] 08/06/2022 09:41:27
--- NOTE | 2024-09-01 13:00 | CT_ITS ---
FINAL REPORT TECHNIQUE: Thin section axial CT images with coronal and sagittal reformats were performed after the administration of IV contrast. This study was performed with techniques to keep radiation doses as low as reasonably achievable (ALARA). Individualized dose reduction techniques using automated exposure control or adjustment of mA and/or kV according to the patient's size were employed. CLINICAL HISTORY: Soft tissue swelling COMPARISON: None FINDINGS: CT NECK SOFT TISSUE WITH CONTRAST The nasopharynx, oropharynx, epiglottis, and larynx are unremarkable. The thyroid is homogeneous. The salivary glands are without acute abnormality and they are symmetric from right to left. There is no cervical lymphadenopathy. There is no fluid collection. The paranasal sinuses and mastoid air cells are clear. There is no acute osseous abnormality. IMPRESSION: No lymphadenopathy or acute inflammatory process in the neck. Reviewed, Interpreted and Dictated by Shobha Rollins MD Transcribed by Nayana Aguirre Authenticated and . [facility]
[2024-09-01] MEDS: SODIUM CHLORIDE 0.9% 10ML SYR (RAD ONLY) 10 ML IV (13:05)
[2024-09-01] MEDS: IOPAMIDOL-370 (76%);100ML BOTTLE 75 ML IV (13:05)
== END 2024-09-01 23:59 | disposition home or self-care (01) ==
LOC: RAD 12:40
PROVIDERS: PCP Family Medicine; Visit Provider Nurse Practitioner
DX: R22.9 Localized swelling, mass and lump, unspecified (principal)
CPT/HCPCS: 70491; Q9967

== ENCOUNTER 2025-01-17 13:21 | Emergency (ER) | payer OTHER, SELFPAY ==
[2025-01-17 13:30] VITALS: BP 123/71; PULSE 55; RESP 16; TEMP 36.6; O2SAT 99; BMI 26.6
--- OUTSIDE RECORDS SUMMARY | 2025-01-17 13:32 | XMS_ITS | Encounter Summary ---
Author Organization Healthcare Address [address] [place] [address] Care Team Providers Care Business Center Manager Name Role Phone Haroon Connor APRN Primary Care Provider [phone] Encounter Details Date Type Department Care Team (Late st Contact Info) Description 06/13/2022 Orders Only External Location [address] [place] [address] Provider, External Social History Tobacco Use Types Packs/Day Years Used Date Smoking Tobacco: Never Assessed Sex and Gender Information Value Date Recorded Sex Assigned at Not on file Legal Sex Male 7:56 PM EDT Gender Identity Not on file Sexual Orientation Not on file documented as of this encounter Plan of Treatment Not on file documented as of this encounter Procedures Procedure Name Priority Date/Time Associated Diagnosis Comments CT OUTSIDE IMAGES 06/13/2022 10:47 AM EST documented in this encounter Results * CT OUTSIDE IMAGES (06/13/2022 10:47 AM EST) Anatomical Region Laterality Modality Computed Tomogra phy 06/13/2022 10:4 7 AM EST us External Provider IMG CT PROCEDURES Final Result documented in this encounter Visit Diagnoses Not on filedocumented in this encounter Care Teams Business Center Manager Relationship Specialty Start Date End Date Haroon Connor APRN [address] [phone] PCP - General 06/27/22 documented as of this encounter
--- OUTSIDE RECORDS SUMMARY | 2025-01-17 13:32 | XMS_ITS | Encounter Summary ---
Author Organization Healthcare Address [address] [place] [address] Care Team Providers Care Senior Media Director Name Role Phone Haroon Connor APRN Primary Care Provider [phone] Encounter Details Date Type Department Care Team (Late st Contact Info) Description 06/13/2022 Orders Only External Location [address] [place] [address] Provider, External Social History Tobacco Use Types [...] Procedure Name Priority Date/Time Associated Diagnosis Comments US OUTSIDE IMAGES 06/13/2022 11:15 AM EST documented in this encounter Results * US OUTSIDE IMAGES (06/13/2022 11:15 AM EST) Anatomical Region Laterality Modality Ultrasound 06/13/2022 11:1 5 AM EST us External Provider IMG US PROCEDURES Final Result documented in this encounter Visit Diagnoses Not on filedocumented in this encounter Care Teams Senior Media Director Relationship Specialty Start Date End Date Haroon Connor APRN [address] [phone] PCP - General 06/27/22 documented as of this encounter
--- OUTSIDE RECORDS SUMMARY | 2025-01-17 13:32 | XMS_ITS | Clinical Summary ---
Author Organization [facility] Address [address] [place] [address] Care Team Providers Care Embroidery Designer Name Role Phone Haroon Connor APRN Primary Care Provider Allergies No known active allergies Medications buPROPion XL (Wellbutrin XL) 150 MG 24 hr tablet Active clindamycin (Cleocin) 300 MG capsule Take 1 capsule (300 mg) by mouth 3 (three) times a day. 03/26/2023 Active clonazePAM (KlonoPIN) 0.5 MG tablet Active HYDROcodone-wade taminophen (Epes) 5-325 MG tablet Take 1 tablet (5 mg of hydrocodone) by mouth every 6 (six) hours if needed for severe pain. 3 tablet 06/18/2023 Active Active Problems Problem Noted Date Diagnosed Date Ganglion cyst of dorsum of right wrist 3 Bone cyst of hand 04/29/2023 Hand pain, right 04/29/2023 Family History Medical History Relation Name Comments Cancer of spinal column Father Cancer Maternal Grandfather Relation Name Status Comments Father Maternal Grandfather Social History Tobacco Use Types Packs/Day Years Used Date Smoking Tobacco: Never Smokeless Tobacco: Former Chew Alcohol Use Standard Drinks/Week Comments Yes 0 (1 standard drink = 0.6 oz pur e alcohol) OCC. PHQ-2 Answer Date Recorded Patient Health Questionnaire-2 Score 0 04/29/2023 PHQ-2A Answer Date Recorded Patient Health Questionnaire-2 Score 0 04/29/2023 Sex and Gender Information Value Date Recorded Sex Assigned at Not on file Legal Sex Male 7:56 PM EDT Gender Identity Not on file Sexual Orientation Not on file Last Filed Vital Signs Vital Sign Reading Time Taken Comments Blood Pressure 112/75 07/03/2023 12:30 PM EST Pulse 82 07/03/2023 12:30 PM EST Temperature - - Respiratory Rate - - Oxygen Saturation 95% 07/03/2023 12:30 PM EST Inhaled Oxygen Concentration - - Weight 90.7 kg (200 lb) 07/03/2023 12:30 PM EST Height 193 cm (6' 4 ) 07/03/2023 12:30 PM EST Body Mass Index 24.34 07/03/2023 12:30 PM EST Plan of Treatment Health Maintenance Due Date Last Done Comments [facility]-HIV Screening 1985 [facility]-Hepatitis C Screening 1985 [facility]-/Child/Adol SDOH Screenings 1985 [facility]-Varicella Vaccines (1 of 2 - 13+ 2-dose series) 1998 [facility]- SDOH Screenings 09/17/2003 [facility]-Adult SDOH Screenings 09/17/2003 [facility]-Hepatitis B Vaccines (1 of 3 - 19+ 3-dose series) 2004 HPV Vaccines (1 - 3-dose SCD M series) 2012 [facility]-DTaP,Tdap,and Td Vaccine s (1 - Tdap) 06/10/2020 06/09/2020 [facility]-TCJMA-29 Vaccine (1 - 20 24-25 season) 2024 [facility]-Depression Screening 04/29/2024 04/29/2023 [facility]-Influenza Vaccine (#1) 2025 [facility]-Zoster Vaccines (1 of 2) 09/17/2035 [facility]-HIB Vaccines Aged Out No longer e ligible based on patient's age to complete this topic [facility]-Hepatitis A Vaccines Aged Out No longer eligible based on patient's age to complete this topic [facility]-IPV Vaccines Aged Out No longer e ligible based on patient's age to complete this topic [facility]-Pneumococcal Vaccine: Pediatrics (0 to 5 Years) and At-Risk Patients (6 to 49 Years) Aged Out No long er eligible based on patient's age to complete this topic [facility]-Rotavirus Vaccines Aged Out No lo nger eligible based on patient's age to complete this topic Insurance [employer] Care Teams Embroidery Designer Relationship Specialty Start Date End Date Haroon Connor APRN [address] [facility] [place] [id number] PCP - General 06/27/22
--- NOTE | 2025-01-17 13:38 | ED_ITS ---
Discharge Plan Disposition Patient Disposition: Home, Self-Care Condition: Good Prescriptions Prescriptions: No Action zinc gluconate 30 mg tablet 30 mg PO DAILY pantoprazole 40 mg tablet,delayed release (DR/EC) 40 mg PO DAILY famotidine 20 mg tablet 20 mg PO DAILY Qty: 30 2RF fexofenadine [Lianne Allergy] 180 mg tablet 180 mg PO DAILY Qty: 30 4RF azithromycin 250 mg tablet See Rx Instructions PO .COMPLEX Qty: 6 0RF Rx Instructions: For 250 mg dose pack: take 500 mg today (day 1), then 250 mg for 4 days (days 2-5) PO benzonatate 100 mg capsule 100 mg PO TID PRN (Reason: cough) Qty: 30 0RF methylprednisolone [Medrol ([place])] 4 mg tablets,dose pack See Rx Instructions PO PER PKG DIR Qty: 21 0RF Rx Instructions: PO PER PKG DIR for 6 days Referrals Follow up/Referrals: Haroon Connor APRN [Primary Care Provider, Family Practice] - See instructions Activity Restrictions/Add. Instructions Additional Instructions/Restrictions: Please return to the emergency department with any worsening signs or symptoms. Please follow-up with your PCP in the upcoming days/weeks. Please continue take all your medication as prescribed. Clinical Impressions Clinical Impression: Bronchitis Instructions Patient Instructions: Cough, DI for Acute Bronchitis Print Language Print Language: Dominican Discharge ED Provider: Sierra Killian General Adult HPI <JAY Weller - Last Filed: 01/17/25 14:39> General Chief complaint: Cough Stated complaint: coughed up blood. Time Seen by Provider: 01/17/25 13:38 Mode of Arrival: Ambulatory Source of Information: Patient Description of Symptoms (Recalled from ER Triage Doc. by RN): patient states he has been coughing for one week and on zpak, today he coughed once and had a little blood come up History of Present Illness HPI narrative: 39-year-old male presents emergency department 1 episode of hemoptysis, that occurred this morning, after a coughing fit , patient was recently diagnosed with upper respiratory infection on 01/15/2025, was started on Z-Chap[place]ito as well as prednisone, been taking medication as prescribed, denies any chest pain, denies any shortness of breath, denies any nausea vomiting constipation diarrhea, denies any hematochezia hematemesis, denies any recent unintentional weight loss, no night sweats, was recently tested for TB , for his job, according to the patient, TB skin test was negative. Past medical history consistent with GERD, patient is a former smoker, occasionally utilizes marijuana, occasional alcohol use, other past medical history is consistent with status post BKA of the left LE, MAYI, MDD. Initial triage vitals unremarkable. Please note that above description of symptoms, in this electronic medical record under categorization of recalled from ER triage doctor by RN are reflective of an initial nursing assessment, however, is not reflective of my full history and physical exam that was personally taken and clarified. Cons equentially, this preceding description of symptoms, which may include the patient's categorized chief complaint in the EMR, do not reflect my personal clinical impression, and the ultimate description of history of present illness and patient stated complaints should be deferred to this section of the note. Unless stated otherwise or congruent with this section of the note, additional signs, symptoms, or incongruence should be interpreted as inaccurate with my clinical impression. Onset (ago): hour(s) Related Data Home Medications ?Medication ?Instructions ?Recorded ?Confirmed pantoprazole 40 mg tablet,delayed 40 mg PO DAILY 01/0601/15/25 release zinc gluconate 30 mg tablet 30 mg PO DAILY 01/06/25 Previous Rx's ?Medication ?Instructions ?Recorded famotidine 20 mg tablet 20 mg PO DAILY #30 tabs 12/19 fexofenadine 180 mg tablet 180 mg PO DAILY #30 tabs (Lianne Allergy) azithromycin 250 mg tablet See Rx Instructions PO .COM PLEX #6 01/15/25 tabs benzonatate 100 mg capsule 100 mg PO TID PRN cough #30 caps 01/15/25 methylprednisolone 4 mg tablets in See Rx Instructions PO PER PKG DIR 01/15/25 a dose pack (Medrol ([place])) #21 tabs Allergies Allergy/AdvReac Type Severity Reaction Status Date / Time No Known Allergies Allergy Verified 01/15/25 13:38 [facility] <JAY Weller - Last Filed: 01/17/25 14:39> [facility] Disclaimer: The information contained in this section may have been updated after the patient was seen, as this information can be updated by other users. Medical History (Updated 01/17/25 @ 14:39 by JAY Weller) Bronchitis Family history of thyroid cancer Soft tissue swelling Superficial contusion of neck Contact dermatitis Influenza A Irritation of left eye Contusion of head Acute bacterial bronchitis Amputation of leg below knee, left, traumatic Panic disorder Generalized anxiety disorder Surgical History H/O removal of cyst Family History Grandfather Thyroid disorder Cancer Brother Thyroid disorder Social History Smoking Status: Current some day smoker tobacco type: cigarettes and e- cigarettes smoking status stop date: 05/14/24 alcohol intake: current alcohol intake frequency: holidays/special occasions only substance use type: marijuana current occupational status: unemployed Travel in the last 8 weeks?: None household members: family and children housing: house number of children: 3 Have you lived/traveled outside US in past 30 days?: No Contact w/someone who lives/traveled outside US past 30 days?: No Exposure to someone with infectious disease in past 14 days?: No Do you have a fever (greater than 100.4 F or 38 C)?: No Have you tested positive for COVID-19?: No Exposed to someone with COVID-19 in past 14 days?: No Do you have a sore throat?: No Do you have a cough?: No Do you have any weakness?: No Do you have any diarrhea?: No Are you experiencing any unusual bleeding?: No Do you have any muscle aches/pain?: No Do you have any abdominal pain?: No Are you experiencing loss of taste or smell?: No Other Medical History Have you received the Flu Vaccine for this season: No Have you received the Pneumonia Vaccine: No <AJY Weller - Last Filed: 01/17/25 14:39> ROS Obtained: Yes All systems reviewed & no additional complaints except as documented Physical Exam <JAY Weller - Last Filed: 01/17/25 14:39> General General appearance: alert and in no apparent distress Head Head exam: atraumatic and normocephalic Eye Eye exam: Present PERRL and EOMI ENT ENT exam: Present mucous membranes moist Neck Neck exam: Present normal inspection Chest Chest inspection: Present normal inspection and symmetric chest wall rise Respiratory Respiratory exam: Present normal lung sounds bilaterally; Absent respiratory distress, wheezes or stridor Cardiovascular Cardiovascular exam: Present regular rate and normal rhythm Abdominal Exam Abdominal exam: Present soft; Absent tenderness Extremities Exam Extremities exam: Present normal inspection Neurological Exam Neurological exam: Present alert and oriented X3 Psychiatric Psychiatric exam: Present normal affect Skin Skin exam: Present warm and dry Medical Decision Making <JAY Weller - Last Filed: 01/17/25 14:39> Medical Records Medical records reviewed: Yes I reviewed the patient's medical records. Screening: Per USPSTF and CDC recommendations, given the prevalence of disease in our region, it is our hospital?s policy to screen for HIV and viral Hepatitis for all patients aged 18 and over and those with ongoing risk factors. Nabor Inquiry Pt receiving controlled substance: No Nabor was queried for this patient: No Vital Signs: 01/17/25 13:30 01/17/25 14:32 01/17/25 14:44 Temperature 97.9 F 98 F Temperature Source Oral Oral Pulse Rate 54 L 54 L Pulse Rate [Right Radial] 55 L Respiratory Rate 16 16 Blood Pressure 120/67 120/67 Blood Pressure [Right Arm] 123/71 Blood Pressure Mean [Right Arm] 88 Blood Pressure Source Automatic Cuff Blood Pressure Source [Right Arm] Automatic Cuff Blood Pressure Position Supine Blood Pressure Position [Right Arm] Sitting 02 Sat by Pulse Oximetry 99 97 Oxygen Delivery Method Room Air Room Air Room Air Orders (Tests/Meds): ORDERS Category Date Time Status XR chest portable Stat Exams 01/17/25 13:46 Completed HIV Combo Stat Lab 01/17/25 13:33 Ordered Hepatitis C Ab Qual. W/ RFX Stat Lab 01/17/25 13:33 Ordered Medical Decision Narrative: 39-year-old male presents emerged part for 1 episode of hemoptysis today, differential diagnose include but not limited to, acute bronchitis, malignancy, posttussive hemoptysis among others. I discussed patient case with attending physician Will obtain chest x-ray, I did offer other laboratory studies and further workup to the patient at the bedside, patient denied at this time would like to pursue imaging, I think this appropriate patient has remained hemodynamically stable, throughout his time in the emergency department for recent URI seem to be more acute bronchitis related, Wells criteria negative. I reviewed the patient's chest x-ray along the corresponding radiologic report, no evidence of pneumonia or interstial edema. I discussed these results with the patient at the bedside, isolated episode of hemoptysis as well as criteria negative no tachycardia otherwise well-appearing, or in the setting of recent acute bronchitis versus URI, most likely acute bronchitis episode of isolated hemoptysis, patient has no other red flag signs or symptoms, patient is cleared to be discharged home to self-care, patient was given strict ED return precautions. Patient voiced understanding and agreed with the current treatment plan/discharge plan. Follow-up with PCP and other providers as directed. <Sierra Killian MD - Last Filed: 01/17/25 15:25> Vital Signs: 01/17/25 13:30 01/17/25 14:32 01/17/25 14:44 Temperature 97.9 F 98 F Temperature Source Oral Oral Pulse Rate 54 L 54 L Pulse Rate [Right Radial] 55 L Respiratory Rate 16 16 Blood Pressure 120/67 120/67 Blood Pressure [Right Arm] 123/71 Blood Pressure Mean [Right Arm] 88 Blood Pressure Source Automatic Cuff Blood Pressure Source [Right Arm] Automatic Cuff Blood Pressure Position Supine Blood Pressure Position [Right Arm] Sitting 02 Sat by Pulse Oximetry 99 97 Oxygen Delivery Method Room Air Room Air Room Air Orders (Tests/Meds): ORDERS Category Date Time Status XR chest portable Stat Exams 01/17/25 13:46 Completed HIV Combo Stat Lab 01/17/25 13:33 Ordered Hepatitis C Ab Qual. W/ RFX Stat Lab 01/17/25 13:33 Ordered Medical Decision Narrative: 39-year-old male presents emerged part for 1 episode of hemoptysis today, differential diagnose include but not limited to, acute bronchitis, malignancy, posttussive hemoptysis among others. I discussed patient case with attending physician Will obtain chest x-ray, I did offer other laboratory studies and further workup to the patient at the bedside, patient denied at this time would like to pursue imaging, I think this appropriate patient has remained hemodynamically stable, throughout his time in the emergency department for recent URI seem to be more acute bronchitis related, Wells criteria negative. I reviewed the patient's chest x-ray along the corresponding radiologic report, no evidence of pneumonia or interstial edema. I discussed these results with the patient at the bedside, isolated episode of hemoptysis as well as criteria negative no tachycardia otherwise well-appearing, or in the setting of recent acute bronchitis versus URI, most likely acute bronchitis episode of isolated hemoptysis, patient has no other red flag signs or symptoms, patient is cleared to be discharged home to self-care, patient was given strict ED return precautions. Patient voiced understanding and agreed with the current treatment plan/discharge plan. Follow-up with PCP and other providers as directed. I was consulted by the MARVIN, and we discussed the complexity of problems being addressed. I approved the treatment and management plan for this patient's care in the emergency department, thus performing a substantial portion of the medical decision making. Sierra Killian MD Critical Care <JAY Weller - Last Filed: 01/17/25 14:39> Critical Care Time Critical Care Time: No
--- NOTE | 2025-01-17 13:46 | XR_ITS ---
PROCEDURE INFORMATION: Exam: XR Chest Exam date and time: 01/17/2025 1:50 PM Age: 39 years old Clinical indication: Other: Hemoptysis; Additional info: Episode of hemoptysis, previous uri TECHNIQUE: Imaging protocol: Radiologic exam of the chest. Views: 1 view. COMPARISON: CT SOFT TISSUE NECK W CON 09/01/2024 12:55 PM FINDINGS: Lungs: No evidence of pneumonia or interstitial edema. Pleural spaces: Unremarkable. No pleural effusion. No pneumothorax. Heart/Mediastinum: Unremarkable. No cardiomegaly. Bones/joints: Unremarkable. IMPRESSION: No evidence of pneumonia or interstitial edema.
[2025-01-17 14:32] VITALS: BP 120/67; PULSE 54; O2SAT 97
[2025-01-17 14:44] VITALS: BP 120/67; PULSE 54; RESP 16; TEMP 36.6; O2SAT 97
== END 2025-01-17 14:45 | disposition home or self-care (01) ==
PROVIDERS: Emergency Provider Student in an Organized Health Care Education/Training Program; PCP Nurse Practitioner Family
DX: J20.9 Acute bronchitis, unspecified (principal); R04.2 Hemoptysis
CPT/HCPCS: 71045; 99282; 99283

== ENCOUNTER 2025-02-16 12:53 | Outpatient (CLI) | payer OTHER, SELFPAY ==
--- OUTSIDE RECORDS SUMMARY | 2025-02-16 12:55 | XMS_ITS | Encounter Summary ---
Author Organization Healthcare Address [address] [place] [address] Care Team Providers Care Gift Shop Manager Name Role Phone Haroon Connor APRN Primary Care Provider [phone] Encounter Details Date Type Department Care Team ([facility] st Contact Info) Description 06/13/2022 Orders Only External Location [address] [place] [address] Provider, External Social History Tobacco Use Types [...] on filedocumented in this encounter Care Teams Gift Shop Manager Relationship Specialty Start Date End Date Haroon Connor APRN [address] [place], [place] [id number] PCP - General 06/27/22 documented as of this encounter
--- OUTSIDE RECORDS SUMMARY | 2025-02-16 12:55 | XMS_ITS | Encounter Summary ---
Author Organization Healthcare Address [address] [place] [address] Care Team Providers Care Corporate Training Manager Name Role Phone Haroon Connor APRN Primary Care Provider [phone] Encounter Details Date Type Department Care Team (Late st Contact Info) Description 06/13/2022 Orders Only External Location [address] [place] [address] Provider, External Social History Tobacco Use Types [...] on filedocumented in this encounter Care Teams Corporate Training Manager Relationship Specialty Start Date End Date Haroon Connor APRN [address] [place] [address] PCP - General 06/27/22 documented as of this encounter
--- OUTSIDE RECORDS SUMMARY | 2025-02-16 12:55 | XMS_ITS | Data Portability ---
Author Organization [facility] & TIFFANY Rodriguez ADMIN Address [address] [place] [phone] Assessment Encounter Date Assessment Date Assessment LastModified [...] EGD in the future with worsening symptoms. [email or web address] Not available 08/06/2022 09:39:22 Plan of Treatment Reminders Order Date Submit Date Provider Last Modified By Organization Details Last Modified Time Details Appointments None recorded. Lab None recorded. Referral None recorded. Procedures None recorded. Surgeries None recorded. Imaging None recorded. Medication Orders pantoprazol e 40 mg tablet,glendy yed release 2022 023 [facility] 591, [address] [place], [address], 3 09:38:01 Patient TargetsNo targets recorded. Patient InstructionsNo instructions recorded. Reason for Referral None Reported. Problems Name Problem SNOMED Code Status Onset Date Resolution Date Notes Provider Name and Address Organization Details Recorded Time Gastroesophag eal reflux disease 623908921 Active 2022 FREDDIE Sandoval [facility] & [place] 3 10:38:35 Nausea and vomiting 02815114 Active 2022 FREDDIE Sandoval [facility] & [place] 3 10:38:45 Anxiety 34722462 Active 2022 Cherise Ospina null, FREDDIE - DENIZNT [facility] & [place] 3 10:38:50 Amputated left lower limb below knee 237869626 Active 2022 Cherise Ospina null, FREDDIE Woo [facility] - [place] & [place] 3 10:39:50 Gastroesophag eal reflux disease without esophagitis 568557136 Active 2022 Oleksandr Gleason PA-C [address] [facility], [place], [address] , FR[facility]DIE Woo [facility] - [place] & [place] 3 09:36:56 Problem Notes None recorded. Medical [...] Diagnosis SNOMED-CT Code Diagnosis ICD10 Code Diagnosis IMO Codes Diagnosis Note [id number] Oleksandr Gleason PA-C [facility] [address] [address] 08/06/2022 09:02:57 08/06/2022 09:09:28 Nausea and vomiting 56200874 R11.2 Gastroesop hageal reflux disease without esophagitis 349619826 K21.9 Health Concerns Section Related Observation LastModified by Organization Detai ls LastModified Time None Recorded Concern Status LastModified by Organization Details LastModified Time None Recorded Advance Directives Directive None Recorded Payers Insurance Date Sequence Insurance Name Policy Number Policy Munoz Covered Member ID Munoz Member ID Guarantor Name 01/04/2024 1 [employer] [facility] (MEDICAID HMO) Travis Reagan [id number] Travis Reagan 01/04/2024 2 [employer] Travis An Doyle [id number] Reagan Notes Date Note Type Note Provider [...] further disposition of care. Oleksandr Gleason PA-C [address], [place], [address], [facility] - [facility] - [place] & [place] 08/06/2022 09:41:27
--- OUTSIDE RECORDS SUMMARY | 2025-02-16 12:55 | XMS_ITS | Clinical Summary ---
Author Organization [facility] Address [address] [place] [address] Care Team Providers Care Power Generation Equipment Repairer Name Role Phone Haroon Connor APRN Primary Care Provider Allergies No known active allergies Medications buPROPion XL (Wellbutrin XL) 150 MG 24 hr tablet Active clindamycin (Cleocin) 300 MG capsule Take 1 capsule (300 mg) by mouth 3 (three) times a day. 03/26/2023 Active clonazePAM (KlonoPIN) 0.5 MG tablet Active HYDROcodone-wade taminophen ([place]) 5-325 MG tablet Take 1 tablet (5 [...] Vaccine s (1 - Tdap) 06/10/2020 06/09/2020 [facility]-Depression Screening 04/29/2024 04/29/2023 [id number] Vaccine (1 - 20 24-25 season) 2025 [facility]-Influenza Vaccine (#1) 2025 [facility]-Zoster Vaccines (1 [...] Insurance [employer] Care Teams Power Generation Equipment Repairer Relationship Specialty Start Date End Date Haroon Connor APRN [address] [place] [address] [place] Ricks [address] PCP - General 06/27/22
[2025-02-16 14:07] LABS: Free T4 (Free Thyroxine) 1.20 ng/dl (0.78-2.19)
[2025-02-16 14:14] LABS: Alanine Aminotransferase 35 U/L (12-78); Albumin Level 5.0 g/dl (3.5-5.0); Albumin/Globulin Ratio 2.0 (1.1-1.8); Alkaline Phosphatase 81 U/L (38-126); Anion Gap 17.5 mEq/L (5-15); Aspartate Amino Transferase 26 U/L (17-59); Bilirubin,Total 1.2 mg/dl (0.2-1.3); Blood Urea Nitrogen 14 mg/dl (9-20); Calcium 10.0 mg/dl (8.4-10.2); Carbon Dioxide 25 mmol/L (22.0-30.0); Chloride 103 mmol/L (98-107); Creatinine,Serum 1.00 mg/dl (0.66-1.25); Estimated Glomerular Filt Rate 83 ml/min (>60); GFR (African American) 101 ML/MIN (>60); Globulin 2.5 g/dL (1.3-3.2); Glucose 108 mg/dl (74-100); Potassium 4.5 mmoL/L (3.5-5.1); Sodium 141 mmol/L (136-145); Total Protein,Serum 7.5 g/dl (6.3-8.2)
[2025-02-16 14:44] LABS: Thyroid Stimulating Hormone 0.99 uIU/mL (0.465-4.68)
== END 2025-02-16 23:59 | disposition home or self-care (01) ==
LOC: LAB 12:54
PROVIDERS: PCP Nurse Practitioner Family; Visit Provider Student in an Organized Health Care Education/Training Program
DX: Z80.8 Family history of malignant neoplasm of other organs or systems (principal)
CPT/HCPCS: 36415; 80053; 84439; 84443